=== PATIENT | male | born 1985 | race Caucasian/White ===

== ENCOUNTER 2017-05-20 17:43 | Emergency (ER) | payer SELFPAY ==
[2017-05-20 20:03] LABS: BASOPHILS 0.3 % (0-2); HEMOGLOBIN 18.3 g/dL (13.5-17.5); IMMATURE GRANULOCYTES 0.4 % (0-5); LYMPHOCYTES 21.3 % (15-50); MCH 31.7 pg (26.0-34.0); MCHC 34.5 g/dL (31.0-37.0); MCV 91.7 fL (80.0-100.0); MEAN PLATELET VOLUME 10.2 fL (7.4-10.4); PLATELET COUNT 300 10x3/uL (130-400); RBC 5.78 10x6/uL (4.20-6.10); RDW 15.7 % (11.5-14.5); WBC 16.5 10x3/uL (4.8-10.8)
[2017-05-20 20:14] LABS: ALBUMIN 4.2 g/dL (3.4-5.0); ANION GAP 18.9 mmol/L (8-16); BILIRUBIN - TOTAL 0.5 mg/dL (0.2-1.3); CALCIUM 10.5 mg/dL (8.5-10.1); CARBON DIOXIDE 25.6 mmol/L (21.0-32.0); CREATININE - SERUM 1.6 mg/dL (0.6-1.3); POTASSIUM - SERUM 4.5 mmol/L (3.5-5.1); PROTEIN - SERUM 7.7 g/dL (6.4-8.2)
== END 2017-05-20 21:36 | disposition home or self-care (01) ==
LOC: D.ER 17:43
PROVIDERS: Nurse Practitioner Acute Care
DX: R07.9 Chest pain, unspecified (principal); I10 Essential (primary) hypertension; R00.0 Tachycardia, unspecified

== ENCOUNTER 2018-04-25 13:44 | Observation (INO) | payer OTHER ==
[~2018-04-25] VITALS: Ht 180.3 cm; Wt 113.6 kg
[2018-04-25] MEDS ORDERED: LISINOPRIL10 MG PO (14:17)
[2018-04-25] MEDS ORDERED: HYDROCO/APAP TAB 10- (14:17)
[2018-04-25 14:36] VITALS: BP 154/86; BMI 35.0
[2018-04-25 15:11] LABS: BASOPHILS 0.5 % (0-2); EOSINOPHILS 1.9 % (0-7); HEMATOCRIT 47.5 % (42.0-54.0); HEMOGLOBIN 16.5 g/dL (13.5-17.5); IMMATURE GRANULOCYTES 0.7 % (0-5); LYMPHOCYTES 27.2 % (15-50); MCH 31.9 pg (26.0-34.0); MCHC 34.7 g/dL (31.0-37.0); MCV 91.7 fL (80.0-100.0); MEAN PLATELET VOLUME 9.5 fL (7.4-10.4); MONOCYTES 8.4 % (2-11); NEUTROPHILS 61.3 % (40-80); PLATELET COUNT 335 10x3/uL (130-400); RBC 5.18 10x6/uL (4.20-6.10); RDW 15.2 % (11.5-14.5); WBC 12.9 10x3/uL (4.8-10.8)
[2018-04-25 15:31] LABS: ALBUMIN 3.5 g/dL (3.4-5.0); ALKALINE PHOSPHATASE 41 U/L (46-116); ALT (SGPT) 65 U/L (10-68); BILIRUBIN - TOTAL 0.22 mg/dL (0.2-1.3); CALC OSMOLALITY 280 mosm/kg (275-300); CALCIUM 8.8 mg/dL (8.5-10.1); CARBON DIOXIDE 26.5 mmol/L (21.0-32.0); CHLORIDE - SERUM 106 mmol/L (98-107); CREATININE - SERUM 1.2 mg/dL (0.6-1.3); POTASSIUM - SERUM 4.7 mmol/L (3.5-5.1); PROTEIN - SERUM 6.4 g/dL (6.4-8.2); SODIUM 143 mmol/L (136-145); UREA NITROGEN 7 mg/dL (7-18); eGFR NON AFRICAN AMERICAN 74 mL/min (90-120)
[2018-04-25 15:32] LABS: GLUCOSE 71 mg/dL (74-106)
[2018-04-25 15:42] LABS: CKMB 1.9 U/L (0.0-3.6); CREATINE KINASE 330 UL (21-232); TROPONIN-I 0.022 ng/mL (0.000-0.060)
[2018-04-25 16:02] VITALS: BP 148/90
[2018-04-25 17:03] VITALS: Ht 180.3 cm; Wt 113.6 kg
[2018-04-25 20:00] VITALS: BP 161/98
[2018-04-25 20:56] LABS: CKMB 1.6 U/L (0.0-3.6); CREATINE KINASE 304 UL (21-232)
[2018-04-25 21:08] LABS: TROPONIN-I < 0.017 ng/mL (0.000-0.060)
[2018-04-26] VITALS: BP 170/69
[2018-04-26 04:00] VITALS: BP 161/104
[2018-04-26 06:22] LABS: BASOPHILS 0.5 % (0-2); HEMATOCRIT 48.2 % (42.0-54.0); HEMOGLOBIN 16.1 g/dL (13.5-17.5); IMMATURE GRANULOCYTES 0.8 % (0-5); LYMPHOCYTES 32.3 % (15-50); MCHC 33.4 g/dL (31.0-37.0); MCV 92.9 fL (80.0-100.0); MEAN PLATELET VOLUME 9.6 fL (7.4-10.4); MONOCYTES 6.7 % (2-11); NEUTROPHILS 56.7 % (40-80); PLATELET COUNT 329 10x3/uL (130-400); RBC 5.19 10x6/uL (4.20-6.10); RDW 15.5 % (11.5-14.5); WBC 12.2 10x3/uL (4.8-10.8)
[2018-04-26 07:32] LABS: AMYLASE - SERUM 88 U/L (25-115); CKMB 1.6 U/L (0.0-3.6); CREATINE KINASE 287 UL (21-232); LIPASE 540 U/L (73-393); THYROID STIMULATING HORMONE 1.84 uIU/mL (0.36-3.74); TROPONIN-I < 0.017 ng/mL (0.000-0.060)
[2018-04-26 08:29] VITALS: BP 165/104
[2018-04-26 11:37] VITALS: BP 179/97
[2018-04-26 15:37] VITALS: BP 186/108
[2018-04-26 20:53] VITALS: BP 188/115
[2018-04-27 01:31] VITALS: BP 171/99
[2018-04-27 06:06] VITALS: BP 175/101
[2018-04-27 06:10] LABS: BASOPHILS 0.4 % (0-2); EOSINOPHILS 2.5 % (0-7); HEMATOCRIT 50.2 % (42.0-54.0); HEMOGLOBIN 16.9 g/dL (13.5-17.5); IMMATURE GRANULOCYTES 0.5 % (0-5); LYMPHOCYTES 34.5 % (15-50); MCH 31.1 pg (26.0-34.0); MCHC 33.7 g/dL (31.0-37.0); MCV 92.3 fL (80.0-100.0); MEAN PLATELET VOLUME 9.5 fL (7.4-10.4); MONOCYTES 7.3 % (2-11); NEUTROPHILS 54.8 % (40-80); PLATELET COUNT 334 10x3/uL (130-400); RBC 5.44 10x6/uL (4.20-6.10); RDW 15.2 % (11.5-14.5); WBC 11.8 10x3/uL (4.8-10.8)
[2018-04-27 06:26] LABS: AMYLASE - SERUM 82 U/L (25-115); LIPASE 508 U/L (73-393)
[2018-04-27 07:54] VITALS: BP 156/75
[2018-04-27 10:57] VITALS: BP 162/77
[2018-04-27 16:38] VITALS: BP 144/70
[2018-04-27 19:00] VITALS: BP 172/101
[2018-04-28 01:39] VITALS: BP 171/100
[2018-04-28 04:00] VITALS: BP 162/82
[2018-04-28 05:23] LABS: BASOPHILS 0.5 % (0-2); EOSINOPHILS 2.3 % (0-7); HEMATOCRIT 52.3 % (42.0-54.0); HEMOGLOBIN 18.1 g/dL (13.5-17.5); IMMATURE GRANULOCYTES 0.6 % (0-5); LYMPHOCYTES 27.5 % (15-50); MCH 31.6 pg (26.0-34.0); MCHC 34.6 g/dL (31.0-37.0); MCV 91.4 fL (80.0-100.0); MEAN PLATELET VOLUME 9.4 fL (7.4-10.4); MONOCYTES 9.3 % (2-11); NEUTROPHILS 59.8 % (40-80); PLATELET COUNT 311 10x3/uL (130-400); RBC 5.72 10x6/uL (4.20-6.10); RDW 15.1 % (11.5-14.5); WBC 12.7 10x3/uL (4.8-10.8)
[2018-04-28 05:47] LABS: LIPASE 530 U/L (73-393); TRIGLYCERIDE 192 mg/dL (30-200)
[2018-04-28 10:54] VITALS: BP 141/104
[2018-04-28 14:53] VITALS: BP 152/89
[2018-04-28] MEDS ORDERED: NORVASC10 MG PO (17:22)
== END 2018-04-28 18:56 | disposition home or self-care (01) ==
LOC: D.M2 13:44 → OBSVTIME 13:45 → D.M2 04-28 18:56
PROVIDERS: Family Medicine; Internal Medicine Gastroenterology
DX: K31.84 Gastroparesis (principal); T40.7X5A Adverse effect of cannabis (derivatives), initial encounter; K29.70 Gastritis, unspecified, without bleeding; K44.9 Diaphragmatic hernia without obstruction or gangrene; I10 Essential (primary) hypertension; R68.81 Early satiety; D18.09 Hemangioma of other sites

== ENCOUNTER 2019-11-12 08:08 | Day surgery (SDC) | payer OTHER ==
[~2019-11-12] VITALS: Ht 180.3 cm; Wt 109.3 kg
[~2019-11-12 08:08] MED LIST: HYDROCO/APAP TAB 10-; LISINOPRIL10 MG PO; NORVASC10 MG PO; OXANDRIN10 MG PO; ROXICODONE15 MG PO; TESTOST CYP 200MG/ML
[2019-11-12] MEDS ORDERED: ANADROL-5050 MG PO (08:58)
[2019-11-12 09:06] VITALS: BP 160/96; Ht 180.3 cm; Wt 109.3 kg
--- NOTE | 2019-11-12 11:35 | NUR ---
PATIENT HAD RECENTLY HAD LASER SURGERY ON LEFT LOWER LEG CLOSE TO SOFT TISSUE MASS THAT IS BEING REMOVED, 2 AREAS QUARTER SIZE REDDISH BROWN IN COLOR THESE WERE REDRESSED AFTER PROCEDURE, BEATRIZ.
[2019-11-12] MEDS ORDERED: ULTRAM50 MG PO (11:43)
--- NOTE | 2019-11-12 15:19 | NUR ---
1300 PT REPORTING LEFT LEG SURGICAL SITE PAIN. RATES PAIN A 6 OUT OF 10. TRAMADOL GIVEN PO. 1322 IV DC'D BY BEERN 1335 PT IN CHAIR AND READY TO BE DISCHARGED HOME. VOICES UNDERSTANDING OF DISCHARGE INSTRUCTIONS. STATES PAIN LEVEL IS DOWN TO A 2 OUT OF 10.
--- NOTE | 2019-11-13 08:28 | OP ---
PATIENT NAME: THOMAS DUTTON MEDICAL RECORD: [id number] :81 LOCATION:PATRICIA ADMISSION DATE: SURGEON: RO PARIKH MD DATE OF OPERATION: 11/12/2019 SURGEON: Ro Parikh MD PREOPERATIVE DIAGNOSIS: Left lower leg mass. POSTOPERATIVE DIAGNOSIS: Left lower extremity hernia. PROCEDURE PERFORMED: Closure of the left lower extremity fascial hernia defect 4 x 3 cm. ANESTHESIA: General. COMPLICATIONS: None. SPECIMENS: None. Case was clean. OPERATIVE COURSE: After consent was taken to the operating room and the patient was placed in supine position on the operating table. Time out was taken and confirms the correct patient and procedure. The left lower leg was prepped and draped in normal sterile fashion. The patient had a palpable mass on the anterior surface between the tibia and fibula concerning with prominent bulging. Local anesthetic was administered. A skin incision was made with 15 blade scalpel. Dissection continued. There are no masses identified and the subcutaneous tissue was dissected. There was a large fascial defect in the tibial-tibial fascia approximately 4 x 3 cm. The fascia was reapproximated using #2 Ethibond with simple interrupted sutures. The wound was copiously irrigated. The skin was closed with 4-0 Monocryl subcuticular suture, Mastisol and Steri-Strips. At the end of the case, all needle and instrument counts were correct. No complications occurred. The patient extubated and transferred to PACU in stable condition. TRANSINT:[id number] Voice Confirmation ID: [id number] DOCUMENT ID: [id number] RO PARIKH MD at 0828 CC: [id number] DICTATION DATE: 11/12/19 1203 CO DIRECTOR: 11/12/19 1624 [facility] 11/12/19 [facility] [address] [place] [address]
== END 2019-11-12 13:35 | disposition home or self-care (01) ==
LOC: D.OPS 08:08 → D.PAN 10:00 → D.OPS 13:35
PROVIDERS: ATTEND Surgery
DX: R22.42 Localized swelling, mass and lump, left lower limb (principal); M62.89 Other specified disorders of muscle; I10 Essential (primary) hypertension; K21.9 Gastro-esophageal reflux disease without esophagitis

== ENCOUNTER → 2020-04-11 14:41 | Outpatient (CLI) | payer OTHER ==
[2019-11-12 09:06] VITALS: BMI 33.6
[~2020-04-11 14:41] MED LIST changes: +ANADROL-5050 MG PO; +ULTRAM50 MG PO
[2020-04-11 14:55] LABS: BASOPHILS 0.4 % (0-2); EOSINOPHILS 1.5 % (0-7); HEMATOCRIT 52.5 % (42.0-54.0); HEMOGLOBIN 17.2 g/dL (13.5-17.5); IMMATURE GRANULOCYTES 0.7 % (0-5); LYMPHOCYTES 18.1 % (15-50); MCH 30.8 pg (26.0-34.0); MCHC 32.8 g/dL (31.0-37.0); MCV 94.1 fL (80.0-100.0); MEAN PLATELET VOLUME 9.3 fL (7.4-10.4); MONOCYTES 7.7 % (2-11); NEUTROPHILS 71.6 % (40-80); PLATELET COUNT 372 10x3/uL (130-400); RBC 5.58 10x6/uL (4.20-6.10); RDW 15.4 % (11.5-14.5); WBC 10.4 10x3/uL (4.8-10.8)
== END | disposition home or self-care (01) ==
LOC: D.LABREF 14:41
PROVIDERS: ATTEND Legal Medicine
DX: D45 Polycythemia vera (principal)

== ENCOUNTER 2021-04-23 18:15 | Inpatient (IN) | payer OTHER ==
[~2021-04-23] VITALS: Ht 180.3 cm; Wt 106.4 kg
--- NOTE | ~2021-04-23 | CN ---
PATIENT NAME:THOMAS DUTTON MEDICAL RECORD: [id number] : 81 [facility] ADMIT DATE: 04/23/21 ACCOUNT: [id number] CONSULTING PHYSICIAN: TAVON MARTINEZ MD REFERRING PHYSICIAN: JENIFER LEWIS MD DATE OF CONSULTATION: 04/24/2021 HISTORY OF PRESENT ILLNESS: A 35-year-old with chronic pancreatitis, presented to the ER with abdominal pain for 3 days duration, intermittently having chest pain, some nausea, some diaphoresis, waxing and waning course. By his report he has not been able to keep anything down for 3 days, although he is asking for breakfast at this point and is drinking a Muscle Milk. Cardiac enzymes are negative. EKG shows a minimal ST-T changes, could be consistent with LVH. We are asked to see him concerning cardiovascular status. PAST MEDICAL HISTORY: Includes history of chronic pancreatitis. MEDICATIONS: Include Oxandrin 10 mg two tablets b.i.d., Roxicodone 15 mg every 4 hours p.r.n. ALLERGIES: PENICILLIN, SULFA, CEFACLOR. SOCIAL HISTORY: Nonsmoker, nondrinker. Does exercise on a regular basis. He does have family history of coronary disease. REVIEW OF SYSTEMS: The patient reports easy bruising but reports no swollen glands. The patient reports no fever, no night sweats, no significant weight gain, no significant weight loss. No significant exercise tolerance. The patient reports no dry eyes, no irritation, no vision change. Patient reports no difficulty hearing and no ear pain. Patient reports no frequent nose bleeds or nose and sinus problems. Patient reports on arm pain on exertion. No shortness of breath while lying down. No history of heart murmur. Patient reports no cough, no wheezing or coughing up blood. Patient reports no abdominal pain, no vomiting. Normal appetite. No diarrhea and not vomiting blood. No nausea and no constipation. Patient reports no incontinence. No difficulty urinating. No hematuria. No increased frequency. Patient reports no muscle aches. No weakness, no arthralgias, no back pain. No swelling of the extremities. Patient reports no abnormal mole, no jaundice, no rashes. Reports no loss of consciousness. No weakness and no numbness. No seizures, dizziness, or headaches. The patient reports no depression, no sleep disturbance, feeling safe in a relationship and no alcohol abuse. Patient reports on fatigue. Reports no runny nose or sinus pressure. No itching, no hives, and no frequent sneezing. PHYSICAL EXAMINATION: GENERAL: No acute distress while complaining of pain and wanting his pain medications. Alert and oriented times 3. VITAL SIGNS: Blood pressure 142/85, pulse 80 and regular. HEENT: Normocephalic, atraumatic. Extraocular muscles are intact. Face symmetric. NECK: No bruits noted. HEART: Regular. Questionable S4 gallop. LUNGS: Good air excursion. ABDOMEN: Soft. No rebound tenderness. EXTREMITIES: Pulses are 2+. No edema. CONSULT REPORT [id number] THOMAS DUTTON NEUROLOGIC: Grossly intact. DIAGNOSTIC DATA: EKG shows probable LVH. No acute ischemic changes. IMPRESSION AND PLAN: At this point in time, given prolonged episode of pain, negative cardiac enzymes, pain is somewhat atypical, I will check echocardiogram study for focal wall motion. Continue supportive measures as you are doing. TRANSINT:[id number] Voice Confirmation ID: [id number] DOCUMENT ID: [id number] TAVON MARTINEZ MD CC: [id number] DICTATION DATE: 04/24/21915 MECHANICAL SYSTEMS ENGINEER: 04/24/21 1240 ADM IN [facility] [address] [place] [address]
[2021-04-23 19:13] LABS: CALC OSMOLALITY 271 mosm/kg (275-300); CALCIUM 10.1 mg/dL (8.5-10.1); CARBON DIOXIDE 31.4 mmol/L (21.0-32.0); CHLORIDE - SERUM 100 mmol/L (98-107); CREATININE - SERUM 1.7 mg/dL (0.6-1.3); POTASSIUM - SERUM 4.6 mmol/L (3.5-5.1); SODIUM 136 mmol/L (136-145); UREA NITROGEN 10 mg/dL (7-18); eGFR NON AFRICAN AMERICAN 48 mL/min (90-120)
[2021-04-23 19:14] LABS: BASOPHILS 0.2 % (0-2); EOSINOPHILS 0.7 % (0-7); HEMATOCRIT 50.1 % (42.0-54.0); HEMOGLOBIN 16.8 g/dL (13.5-17.5); LYMPHOCYTES 20.1 % (15-50); MCH 30.8 pg (26.0-34.0); MCHC 33.6 g/dL (31.0-37.0); MCV 91.8 fL (80.0-100.0); MEAN PLATELET VOLUME 7.3 fL (7.4-10.4); MONOCYTES 6.3 % (2-11); NEUTROPHILS 72.7 % (40-80); PLATELET COUNT 386 10x3/uL (130-400); RBC 5.46 10x6/uL (4.20-6.10); RDW 15.9 % (11.5-14.5); WBC 12.8 10x3/uL (4.8-10.8)
--- NOTE | 2021-04-23 19:17 | NUR ---
PT REPORT GIVEN TO ANASTASIYA PARK
[2021-04-23 19:20] LABS: GLUCOSE 121 mg/dL (74-106)
[2021-04-23 19:30] LABS: ALBUMIN 3.8 g/dL (3.4-5.0); ALKALINE PHOSPHATASE 52 U/L (30-120); ALT (SGPT) 63 U/L (10-68); BILIRUBIN - TOTAL 0.62 mg/dL (0.2-1.3); CKMB 1.6 U/L (0.0-3.6); CREATINE KINASE 426 UL (21-232); MAGNESIUM - SERUM 2.1 mg/dL (1.8-2.4); PROTEIN - SERUM 7.4 g/dL (6.4-8.2); TROPONIN-I < 0.017 ng/mL (0.000-0.060)
[2021-04-23 20:28] LABS: AMYLASE - SERUM 57 U/L (25-115); LIPASE 268 U/L (73-393)
[2021-04-24] VITALS (13 sets, daily range): BP systolic 139–156; BP diastolic 82–91; BMI 32.6
--- NOTE | 2021-04-24 02:15 | NUR ---
pt reports headache LOP 06/16. Dr. San notified. 1000mg acetaminophen one time dose ordered per Jaswinder.
[2021-04-24 03:55] LABS: BASOPHILS 0.8 % (0-2); EOSINOPHILS 1.1 % (0-7); HEMATOCRIT 46.6 % (42.0-54.0); HEMOGLOBIN 15.8 g/dL (13.5-17.5); LYMPHOCYTES 20.9 % (15-50); MCH 31.2 pg (26.0-34.0); MCHC 33.8 g/dL (31.0-37.0); MCV 92.2 fL (80.0-100.0); MEAN PLATELET VOLUME 7.5 fL (7.4-10.4); MONOCYTES 6.3 % (2-11); NEUTROPHILS 70.9 % (40-80); PLATELET COUNT 339 10x3/uL (130-400); RBC 5.06 10x6/uL (4.20-6.10); RDW 15.9 % (11.5-14.5)
[2021-04-24 04:08] LABS: CALC OSMOLALITY 279 mosm/kg (275-300); CALCIUM 9.2 mg/dL (8.5-10.1); CARBON DIOXIDE 29.7 mmol/L (21.0-32.0); CHLORIDE - SERUM 101 mmol/L (98-107); CREATININE - SERUM 1.4 mg/dL (0.6-1.3); GLUCOSE 138 mg/dL (74-106); POTASSIUM - SERUM 4.1 mmol/L (3.5-5.1); SODIUM 139 mmol/L (136-145); UREA NITROGEN 12 mg/dL (7-18); eGFR NON AFRICAN AMERICAN 61 mL/min (90-120)
[2021-04-24 04:13] LABS: LIPASE 482 U/L (73-393); TROPONIN-I < 0.017 ng/mL (0.000-0.060)
--- NOTE | 2021-04-24 07:00 | NUR ---
0700: RECEIVED REPORT FROM XAVIER JONES. PT SLEEPING AT THIS TIME, RR EVEN & UNLABORED, PT SET TO MONITOR, WILL CONTINUE TO MONITOR. 0800: PT VISITOR TO BEDSIDE AT THIS TIME. 0815: PT CALLED ASKING FOR PAIN MEDICATION, RN INFORMED PT THAT MEDS ARE PRN Q2, AND MEDS ARE NOT YET DUE. PT STATED UNDERSTANDING, WILL CONTINUE TO MONITOR. 0850: RN TO PT BEDSIDE TO CHECK BG, GIVE MEDS (SEE MAR), ASSESS IV. MEDS GIVEN, SEE MAR. BLOOD DRAWN AND GIVEN TO KNOWLEDGE ANALYST AT BEDSIDE FOR REPEAT TRIPONIN. PT A&OX3, GCS 15, RR EVEN & UNLABORED, NO S/S OF ACUTE DISTRESS NOTED AT THIS TIME, BREAKFAST TRAY PROVIDED AT THIS TIME. 1013: PT CALLED OUT TO RN ASKING FOR PAIN MEDICATION, RN INFORMED PT THAT MEDS ARE UNABLE TO BE GIVEN FOR ANOTHER 30MINUTES OR SO. PT STATED UNDERSTANDING. WILL CONTINUE TO ONITOR. 1050: PT CALLED FOR RN TO BEDSIDE FOR PAIN MEDICATION AT THIS TIME. 1100: RN TO PT BEDSIDE AT THIS TIME TO ADMINISTER MEDS. MEDS GIVEN, SEE MAR. PT MOTHER AT BEDSIDE WITH PT AT THIS TIME. VS REASSESSED. PT A&OX3, GCS 15, NO S/S OF ACUTE DISTRESS NOTED AT THIS TIME, WILL CONTINUE TO MONITOR.
--- NOTE | 2021-04-24 15:43 | NUR ---
1200: LUNCH TRAY PROVIDED AT THIS TIME, PT ASKED RN FOR PAIN MEDS, PT INFORMED TIME FOR MEDS NOT QUITE READY. NO OTHER COMPLAINTS OR CONCERNS AT THIS TIME, WILL CONTINUE TO MONITOR. 1300: MEDS GIVEN, SEE MAR. NO S/S OF ACUTE DISTRESS NOTED AT THIS TIME, WILL CONTINUE TO MONITOR. 1400: SNACKS PROVIDED PER REQUEST, MORE FLUIDS HUNG, NO S/S OF ACUTE DISTRESS NOTED AT THIS TIME, WILL COTNINUE TO MONITOR. 1500: PT RESTING AT THIS TIME, RR EVEN & UNLABORED, NO S/S OF ACUTE DISTRESS NOTED AT THIS TIME, WILL CONTINUE TO MONITOR.
--- NOTE | 2021-04-24 16:00 | NUR ---
1600: PT RESTING IN BED AT THIS TIME, RR EVEN & UNLABORED, NO S/S OF ACUTE DISTRESS NOTED AT THIS TIME, WILL CONTINUE TO MONITOR. 1700: PT RESTING IN BED AT THIS TIME, ASKING WHEN DINNER IS SERVED, NO S/S OF ACUTE DISTRESS NOTED AT THIS TIME, WILL CONTINUE TO MONITOR. 1800: MEDS GIVEN, SEE MAR. NO S/S OF ACUTE DISTRESS NOTED AT THIS TIME, WILL CONTINUE TO MONITOR. 1820: CARDIOLOGY AT BEDSIDE AT THIS TIME. BG TAKEN, WAS 90. INSULINE HELD PER PROTOCAL. PT ASKING FOR PAIN MEDS BEFORE SHIFT CHANGE, INFORMED MEDS ARE NOT DUE UNTIL AFTER SHIFT CHANGE. WILL CONTINUE TO MONITOR.
--- NOTE | 2021-04-24 22:26 | NUR ---
FSBS 89
--- NOTE | 2021-04-24 22:48 | NUR ---
REPORT CALLED FROM ER.
[2021-04-25] VITALS: BP 152/100
--- NOTE | 2021-04-25 01:05 | NUR ---
ADMIT TO ROOM 211 FROM ER AT 2330. ALERT/ORIENTED AND AMBULATORY. IMMEDIATELY REQUESTING TO TAKE A SHOWER. ALLOWED TO SHOWER AND NOW IN BED. IV TO RFA, STARTED PLASMALYTE AT 125ML/HR. PT REQUESTING LOTION BE APPLIED TO LOWER BACK. APPLIED AT THIS TIME. TELEMETRY INITIATED.
[2021-04-25 03:18] VITALS: BP 152/100; Ht 180.3 cm; Wt 106.4 kg
[2021-04-25 04:00] VITALS: BP 143/88
--- NOTE | 2021-04-25 04:07 | NUR ---
AWAKENED FOR VITAL SIGNS. BP BETTER. REQUESTED IV MORHPHINE FOR PAIN TO CHEST 06/16. MORPHINE ADMINISTERED. CALL LIGHT IN REACH.
[2021-04-25 05:38] LABS: EOSINOPHILS 1.8 % (0-7); HEMOGLOBIN 16.3 g/dL (13.5-17.5); MCH 30.7 pg (26.0-34.0); MCHC 33.2 g/dL (31.0-37.0); MCV 92.3 fL (80.0-100.0); MEAN PLATELET VOLUME 7.3 fL (7.4-10.4); MONOCYTES 7.7 % (2-11); NEUTROPHILS 64.5 % (40-80); PLATELET COUNT 376 10x3/uL (130-400); RBC 5.31 10x6/uL (4.20-6.10); WBC 10.2 10x3/uL (4.8-10.8)
[2021-04-25 05:45] LABS: CALCIUM 9.6 mg/dL (8.5-10.1); CARBON DIOXIDE 25.8 mmol/L (21.0-32.0); CREATININE - SERUM 1.2 mg/dL (0.6-1.3); POTASSIUM - SERUM 4.8 mmol/L (3.5-5.1)
--- NOTE | 2021-04-25 06:30 | NUR ---
BEDSIDE REPORT RECEIVED. RESP EVEN AND UNLABORED ON ROOM AIR. IV TO RIGHT FOREARM PATENT.
[2021-04-25 08:00] VITALS: BP 131/62
--- NOTE | 2021-04-25 08:30 | NUR ---
PATIENT AWAKE AND ALERT. ABLE TO MAKE NEEDS KNOWN. RESP EVEN AND UNLABORED ON ROOM AIR. O2 SAT 99. IV TO RIGHT FOREARM PATENT RUNNING PLASMALYTE. LUNG SOUNDS CLEAR, REGULAR RATE AND RYTHYM HEART SOUNDS. ABDOMEN NON TENDER AND SOFT BOWEL SOUNDS ACTIVE.
[2021-04-25 12:00] VITALS: BP 132/83
[2021-04-25] MEDS ORDERED: LISINOPRIL10 MG PO (12:00)
[2021-04-25] MEDS ORDERED: BYSTOLIC20 MG PO (12:00)
[2021-04-25] MEDS ORDERED: GABAPENTIN100 MG PO (12:00)
[2021-04-25] MEDS ORDERED: CREON (PANCRELI1 CAP PO (12:02)
--- NOTE | 2021-04-25 18:51 | MORECARE ---
CASE MANAGEMENT DISCHARGE SUMMARY PATIENT: THOMAS DUTTON UNIT: [id number] ADM DATE: 04/23/21 AGE: 35 : 83 SEX: M ROOM/BED: D.2113 AUTHOR: DERICDOC PHYSICIAN: REFERRING PHYSICIAN: JENIFER WILCOX MD DATE OF SERVICE: 04/25/21 Case Management Discharge Planning Summary COMMENTS ENTERED DATE: 04/25/21 18:49 CT COMMENT TYPE: Discharge Planning REVIEWER: Neto Arroyo CM met with patient to complete DC plan and to evaluate needs. Patient lives independently with family and stated that his person to notify is his mother, Janice Dutton, . Patient stated that his home is safe and has electricity and running water. Patient stated that he has no problems paying for medications and he fills his medications at [facility]. Patient stated that his primary care physician is Dr. Wilcox. At discharge, the patient plans to return home and feels this is a safe discharge. CM discussed availability of home health, rehab services, and medical equipment. Patient declined HHS, SNF, IPR, and DME. Patient voiced no other needs at this time and is satisfied with DC plan. CM will continue to follow and will assist as needed with dc plans/needs DCP REVIEW SUMMARY ANTICIPATED D/C DATE: 04/25/2021 EXPECTED LOS : 2 CASE STATUS: DCP Initiated INITIAL REVIEW: 04/23/2021 INITIAL REVIEWER: Neto Arroyo FINAL DISCHARGE DISPOSITION: : FINAL REVIEWER: FINAL REVIEW DATE: DCP Focus Questions & Answers DCP Evaluation QUESTION: ANSWER Patient gives permission to discuss discharge plans with: (name, relationship and number) : mother, Janice Dutton, Patient's ability to cope with chronic illness : d. No chronic illness Patient's current cognitive status: : *Oriented to person, place, situation, time and present Family / Caregiver's ability to cope with chronic illness: : a. Adequate (ability to meet patient's medical needs, ensures patient attends medical appts.) Patient and/or caregiver agree upon recommended discharge plan? : Yes Physical Status: : Independent with ADL's Family / Caregiver's ability to cope with chronic illness: : a. Adequate (ability to meet patient's medical needs, ensures patient attends medical appts.) Functional screen assessment: : Basic needs can adequately be met by self Does the patient have the ability to pay for or attain post discharge needs / services? : Yes Living Arrangements: : Home with Extended Family Is there a likelihood that the patient will require additional services to return to the preadmission environment? : No Equipment needed for post hospitalization: : None Baseline cognitive status: : *Oriented to person, place, situation, time and present Patient with capacity for self-care or can be cared for in same environment as prior to hospitalization? : Yes Physical environment modification needed / anticipated for discharge: : No Medication Management: : Patient states can afford medications Medication Management: : Patient states can read and understand medication labels Pharmacy name(s): : [facility] Does Patient have transportation to get home and to follow-up medical appointments when discharged from the hospital? : Yes Would patient like to participate in any Care Coordination programs (if applicable): : Not applicable Does the patient have electricity at home? : Yes Does the patient have running water in their house? : Yes Equipment in use: : None Mental health screen: : No mental health history DCP Re-evaluation QUESTION: ANSWER Would patient like to participate in any Care Coordination programs (if applicable): : Not applicable PATIENT: THOMAS DUTTON ENCOUNTER: [id number] MEDICAL RECORD#: [id number] ADMISSION DATE: 04/23/2021 DISCHARGE DATE: 04/25/2021 ATTENDING MD: JENIFER LO : AGE: 35 MARITAL STATUS: S DC PLAN ID: [id number] FACILITY: [facility] PRINTED ON: 04/25/21 18:51 CT All edits/amendments must be made on the electronic document DICTATION DATE: 04/25/211850 INFORMATION SECURITY ASSOCIATE: JENAE 04/25/211850 RPT#: [id number] DC DATE:04/25/21 STATUS: DIS IN [facility] [address] [place] [address] END OF REPORT
--- NOTE | 2021-04-26 13:07 | EC ---
PATIENT:THOMAS DUTTON DATE OF SERVICE: 04/23/21 SEX: M MEDICAL RECORD: [id number] DATE OF : 81 LOCATION:D. D.211 AGE OF PATIENT: 35 ADMISSION DATE: 04/23/21 REFERRING PHYSICIAN: INTERPRETING PHYSICIAN: ELIAN IRWIN MD ECHOCARDIOGRAM REPORT ECHO CHARGES 4 ECHO COMPLETE Date: 04/24/21 CLINICAL DIAGNOSIS: CP ECHOCARDIOGRAPHIC MEASUREMENTS (adult normal given) AC root (d.<3.7cm) 3.5 cm LV Septum d (<1.2 cm> 1.2 cm Valve Excursion 2.1 cm LV Septum (systole) 1.6 cm Left Atria (s.<4.0cm> 4.0 cm LVPW d(<1.2cm) 1.9 cm RV (d.<2.3cm) 2.7 cm LVPW (sytole) 2.2 cm LV diastole(<5.6CM) 5.8 cm MV E-F(>70mm/sec) cm LV systole 4.7 cm LVOT Diameter 2.0 cm MV exc.(>10mm) 2.0 cm Est.ejection fraction (50-75%) % DOPPLER: LVIT cm/sec A 53 cm/sec E 79 cm/sec LA cm/sec RVSP 23 mmHg LVOT 129 cm/sec AOP1/2T m/s Asc. Ao 137 cm/sec RVOT 74 cm/sec RA cm/sec PA 97 cm/sec AV Gradient Peak 7.5 mmHg AV Mean 4.3 mmHg AV Area 3.1 cm MV Gradient Peak 3.4 mmHg MV Mean 1.4 mmHg MV Area cm COMMENTS: Voip Network Technician: Doreen WRAY Dry Cleaner Helper: 3 Dr. Peters TAPE# Pericardial Effusion N DATE OF SERVICE: CLINICAL INDICATION: Chest pain. INTERPRETATION: Normal left ventricular chamber size and contractile function, ejection fraction 55% to 60% with concentric left ventricular hypertrophy. FINDINGS: Left atrial chamber appears normal. Right atrium and right ventricular chamber size and function appears normal. Aortic valve appears normal. No aortic stenosis or regurgitation. Mitral valve appears normal. ECHOCARDIOGRAM REPORT [id number] THOMAS DUTTON Trace mitral regurgitation. Tricuspid valve appears normal. Trace tricuspid regurgitation. Pulmonic valve appears normal. No pulmonary regurgitation. No pericardial effusion visualized. IMPRESSION: Normal left ventricular chamber size and contractile function with mild concentric left ventricular hypertrophy with an ejection fraction of 55% to 60%. TRANSINT:[id number] Voice Confirmation ID: [id number] DOCUMENT ID: [id number] ELIAN IRWIN MD at 1307 CC: [id number] DICTATION DATE: 04/25/21 1202 RESOURCE ECONOMIST: 04/25/21 1259 DIS IN 04/25/21 [place] [id number] [place] [id number]
--- NOTE | 2021-04-27 14:30 | MORECARE ---
CASE MANAGEMENT DISCHARGE SUMMARY PATIENT: THOMAS DUTTON UNIT: [id number] ADM DATE: 04/23/21 AGE: 35 : 83 SEX: M ROOM/BED: D.2114 AUTHOR: DERICDOC PHYSICIAN: REFERRING PHYSICIAN: JENIFER WILCOX MD DATE OF SERVICE: 04/27/21 Case Management Discharge Planning Summary COMMENTS ENTERED DATE: 04/25/21 18:49 CT COMMENT TYPE: Discharge Planning REVIEWER: Neto Arroyo CM met with patient to complete DC plan and to evaluate needs. Patient lives independently with family and stated that his person to notify is his mother, Janice Dutton, . Patient stated that his home is safe and has electricity and running water. Patient stated that he has no problems paying for medications and he fills his medications at [facility]. Patient stated that his primary care physician is Dr. Wilcox. At discharge, the patient plans to return home and feels this is a safe discharge. CM discussed availability of home health, rehab services, and medical equipment. Patient declined HHS, SNF, IPR, and DME. Patient voiced no other needs at this time and is satisfied with DC plan. CM will continue to follow and will assist as needed with dc plans/needs DCP REVIEW SUMMARY ANTICIPATED D/C DATE: 04/25/2021 EXPECTED LOS : 2 CASE STATUS: DCP Initiated INITIAL REVIEW: 04/23/2021 INITIAL REVIEWER: Neto Arroyo FINAL DISCHARGE DISPOSITION: : FINAL REVIEWER: FINAL REVIEW DATE: DCP Focus Questions & Answers DCP Evaluation QUESTION: ANSWER Patient gives permission to discuss discharge plans with: (name, relationship and number) : mother, Janice Dutton, Patient's ability to cope with chronic illness : d. No chronic illness Patient's current cognitive status: : *Oriented to person, place, situation, time and present Family / Caregiver's ability to cope with chronic illness: : a. Adequate (ability to meet patient's medical needs, ensures patient attends medical appts.) Patient and/or caregiver agree upon recommended discharge plan? : Yes Physical Status: : Independent with ADL's Family / Caregiver's ability to cope with chronic illness: : a. Adequate (ability to meet patient's medical needs, ensures patient attends medical appts.) Functional screen assessment: : Basic needs can adequately be met by self Does the patient have the ability to pay for or attain post discharge needs / services? : Yes Living Arrangements: : Home with Extended Family Is there a likelihood that the patient will require additional services to return to the preadmission environment? : No Equipment needed for post hospitalization: : None Baseline cognitive status: : *Oriented to person, place, situation, time and present Patient with capacity for self-care or can be cared for in same environment as prior to hospitalization? : Yes Physical environment modification needed / anticipated for discharge: : No Medication Management: : Patient states can afford medications Medication Management: : Patient states can read and understand medication labels Pharmacy name(s): : [facility] Does Patient have transportation to get home and to follow-up medical appointments when discharged from the hospital? : Yes Would patient like to participate in any Care Coordination programs (if applicable): : Not applicable Does the patient have electricity at home? : Yes Does the patient have running water in their house? : Yes Equipment in use: : None Mental health screen: : No mental health history DCP Re-evaluation QUESTION: ANSWER Would patient like to participate in any Care Coordination programs (if applicable): : Not applicable PATIENT: THOMAS DUTTON ENCOUNTER: [id number] MEDICAL RECORD#: [id number] ADMISSION DATE: 04/23/2021 DISCHARGE DATE: 04/25/2021 ATTENDING MD: JENIFER LO : AGE: 35 MARITAL STATUS: S DC PLAN ID: [id number] FACILITY: [facility] PRINTED ON: 04/27/21 14:30 CT All edits/amendments must be made on the electronic document DICTATION DATE: 04/27/21 143 AUTO CLAIMS ADJUSTER: JENAE 04/27/21 143 RPT#: [id number] DC DATE:04/25/21 STATUS: DIS IN [facility] [address] [place] [address] END OF REPORT
== END 2021-04-25 13:30 | disposition home or self-care (01) | DRG 313 ==
LOC: D.ER 18:15 → D.EDHOLD 20:59 → D.M2 20:59
PROVIDERS: Family Medicine; ADMIT Family Medicine; ATTEND Family Medicine
DX: R07.9 Chest pain, unspecified (principal); K85.90 Acute pancreatitis without necrosis or infection, unspecified; I10 Essential (primary) hypertension; R10.13 Epigastric pain